=== PATIENT | male | born 1980 | race African-American/Black ===

== ENCOUNTER 2019-05-27 | Emergency (ER) | payer OTHER ==
[2019-05-27 14:51] LABS: HEMATOCRIT 43.3 % (39.0-50.0); MEAN CELL VOLUME 90.6 fL CALC (80.0-100.0); MEAN CORPUSCULAR HGB 29.3 pG CALC (26.0-32.0); MEAN CORPUSCULAR HGB CONC 32.3 g/L CALC (32.0-36.0); RED BLOOD COUNT 4.78 mill/uL (4.70-6.10); RED CELL DISTRI WIDTH 13.3 % (11.5-15.5)
[2019-05-27 15:02] LABS: ALKALINE PHOSPHATASE 104 u/l (38-126); ANION GAP 11 (6-22 (CALC)); BILIRUBIN, TOTAL 0.4 mg/dL (0.0-1.4); BUN 12 mg/dL (9-20); BUN/CREATININE RATIO 11 (12-20 (CALC)); CARBON DIOXIDE 29 mmol/l (22-30); CHLORIDE 105 mmol/l (95-108); CREATININE 1.1 mg/dL (0.7-1.3); GFR > 60 ML/MIN (>=60 (CALC)); GFR FOR AFR.AMER. > 60 ML/MIN (>=60 (CALC)); POTASSIUM 4.4 mmol/l (3.5-5.1); SGOT/AST 28 u/l (17-59); SODIUM 140 mmol/l (137-146)
[2019-05-27 15:05] LABS: IMMATURE GRANULOCYTES 0.3 % (0.0-5.0); NEUT# 8.93 thou/uL (1.82-7.42)
[2019-05-27] MEDS ORDERED: DEXAMETHASON4 MG PO (15:19)
== END 2019-05-27 15:55 | DRG 813 ==
PROVIDERS: Family Medicine
DX: D69.3 Immune thrombocytopenic purpura (principal)